=== PATIENT | female | born 2000 | race Caucasian/White ===

== ENCOUNTER 2023-06-10 09:32 | Emergency (ER) | payer OTHER, SELFPAY ==
[2023-06-10 09:44] VITALS: BP 116/71; PULSE 89; RESP 16; TEMP 36.9; O2SAT 100
--- NOTE | 2023-06-10 10:02 | ED.URI ---
HPI - URI/Sore Throat General Chief Complaint: Upper Respiratory Infection Stated Complaint: Sore Throat, Covid Source: patient and RN notes reviewed Mode of arrival: ambulatory Limitations: no limitations History of Present Illness HPI Narrative: 22-year-old COVID positive female presented for complaint of sore throat. Onset today. She has been taking [id number] medications for COVID, states throat pain is severe. Endorses swollen lymph nodes. Denies shortness of breath, wheezing, nausea, vomiting or diarrhea. MD elicited complaint: cough Related Data Home Medications Medication Instructions Recorded Confirmed dextroamphetamine-amphetamine ER 25 mg PO DAILY 06/10/23 06/10/23 25 mg 24hr capsule,extend release (Adderall XR) duloxetine 60 mg capsule,delayed 60 mg PO DAILY 06/10/23 06/10/23 release Allergies Allergy/AdvReac Type Severity Reaction Status Date / Time No Known Allergies Allergy Unverified 12/27/17 08:40 Review of Systems Review of Systems: CONSTITUTIONAL: Endorses malaise, chills, sweats, fever EYES: Denies visual changes, redness, or discharge ENT: Reports rhinorrhea, congestion, sinus pain, otalgia, sore throat CARDIOVASCULAR: Denies chest pain, palpitations, edema RESPIRATORY: Reports cough, post nasal drainage. Denies dyspnea GASTROINTESTINAL: Denies abdominal pain, nausea, vomiting, diarrhea SKIN: Denies rash or itching MUSCULOSKELETAL: Endorses myalgia PMFSH Past Medical History Medical History (Updated 06/10/23 @ 10:11 by Jacquelin Whitney, ATMOSPHERIC TECHNICIAN) ADHD Exam Narrative: GENERAL: Ill-appearing, nontoxic EYES: PERRLA, conjunctivae clear ENT: Mucous membranes moist. TMs pearly romero with dull light reflex bilaterally; no tragal tenderness. Oropharynx erythematous tonsils 3+ without lesions or exudate, no drooling, no hoarseness, no trismus, uvula midline. No tripod positioning, muffled voice, soft palate or pharyngeal wall bulging NECK: Supple. No lymphadenopathy CHEST: Clear to auscultation, breath sounds equal. No wheezing, rhonchi, rales, or stridor. No respiratory distress, speaks in full sentences. HEART: Regular rate and rhythm. No murmur heard. SKIN: Warm, dry, no rash. NEURO: Alert and oriented x3. PSYCH: Normal mood and affect Course Course Emergency Course: Patient is aware of diagnosis, understands and agrees to treatment plan. Anticipatory guidance given. Patient agrees to follow-up as directed and is aware of reasons to seek care at the emergency department. Portions of this record may have been created with voice recognition software Level of Care: Express Care Visit Vital Signs Vital signs: Vital Signs Temperature 98.4 F 06/10/23 09:44 Pulse Rate 89 06/10/23 09:44 Respiratory Rate 16 06/10/23 09:44 Blood Pressure 116/71 06/10/23 09:44 Pulse Oximetry 100 06/10/23 09:44 Temperature 98.4 F 06/10/23 09:44 Pulse Rate 89 06/10/23 09:44 Respiratory Rate 16 06/10/23 09:44 Blood Pressure 116/71 06/10/23 09:44 Pulse Oximetry 100 06/10/23 09:44 reviewed MDM - URI/Sore Throat MDM Narrative Medical decision making narrative: Neg strep result reviewed with pt. However based on PE and CC will send abx. pt may call in 2 days for the culture results. Advise supportive treatments. Patient is appropriate for outpatient treatment and follow-up. Differential Diagnosis Differential diagnosis: Likely upper respiratory infection, sinusitis, viral infection, bronchitis, influenza and pharyngitis Lab Data Labs: Strep Screen Presumptive Negative *(Reference Range: Negative)* Discharge Plan Discharge Clinical Impression: Viral infection Patient Disposition: Home, Self-Care Condition: Stable Instructions: COVID-19 (Coronavirus Disease 2019) (ED) Additional Instructions: Rapid strep swab was negative today he will be treated for strep thro
== END 2023-06-10 10:17 | disposition home or self-care (01) ==
PROVIDERS: Emergency Provider Nurse Practitioner Family; PCP Internal Medicine
DX: U07.1 COVID-19 (principal)
CPT/HCPCS: 87081; 87880; 99213; G0463